=== PATIENT | female | born 1940 | race Caucasian/White ===

== ENCOUNTER 2019-06-02 13:08 | Emergency (ER) | payer OTHER, MEDICARE ==
--- NOTE | 2019-06-02 13:28 | PDOC ---
History of Present Illness - General Chief Complaint: Rash Stated Complaint: RED RASH TO RIGHT LEG Time Seen by Provider: 06/02/19 13:14 History Source: Patient Exam Limitations: No Limitations - History of Present Illness Initial Comments: 06/02/19 13:23 79 y/o female with rash on body for 9 months. Unable to get in to [facility]. Itchy and red. Most lesions on legs and abdomen. No fever or chills. No new products. Scratches at them. Severity: Yes: mild Past History - Past Medical History Allergies/Adverse Reactions: Allergies Allergy/AdvReac Type Severity Reaction Status Date / Time No Known Allergies Allergy Unverified 06/02/19 13:11 Home Medications: Ambulatory Orders Allopurinol 1 tab PO DAILY 06/02/19 Biotin 600 mcg PO DAILY 06/02/19 Cephalexin [Keflex] 500 mg PO TID #21 capsule 06/02/19 Cholecalciferol (Vitamin D3) [Vitamin D3 -] 1,000 unit PO DAILY 06/02/19 Cyanocobalamin/Folic AC/Vit B6 [Folbic Tablet] 1 each PO DAILY 06/02/19 Hydrochlorothiazide [Hctz -] 12.5 mg PO DAILY 06/02/19 Hydrocortisone 2.5% Topical Cr [Anusol-Hc -] 1 applic RC TID #1 tube 06/02/19 Metoprolol Succinate 50 mg PO DAILY 06/02/19 Quinapril HCl 20 mg PO HS 06/02/19 Review of Systems - Review of Systems Able to Perform ROS?: Yes Is the patient limited Welsh proficient: No Constitutional: No: Chills, Fever Respiratory: No: Cough, Shortness of Breath Cardiac (ROS): No: Chest Pain ABD/GI: No: Nausea, Vomiting Musculoskeletal: No: Muscle Pain Integumentary: Yes: Pruritus, Rash All Other Systems: Reviewed and Negative *Physical Exam - Physical Exam General Appearance: Yes: Nourished, Appropriately Dressed. No: Severe Distress HEENT: positive: Normal ENT Inspection, Normal Voice Neck: positive: Trachea midline, Normal Thyroid, Supple. negative: Tender, Rigid Respiratory/Chest: positive: Lungs Clear, Normal Breath Sounds. negative: Chest Tender, Respiratory Distress Cardiovascular: positive: Regular Rhythm, Regular Rate, S1, S2. negative: Edema , JVD, Murmur Vascular Pulses: Femoral (R): 4+, Femoral (L): 4+, Carotid (R): 4+, Carotid (L) : 4+, Dorsalis-Pedis (R): 4+, Doralis-Pedis (L): 4+ Lymphatic: negative: Adenopathy, Tenderness, Other Musculoskeletal: positive: Normal Inspection. negative: CVA Tenderness Extremity: positive: Normal Capillary Refill, Normal Inspection, Normal Range of Motion, Tender Integumentary: positive: Normal Color, Dry, Warm, Erythema, Rash (scaly rash to right lower leg with smaller lesions to both legs surrounded by erythema, no warmth and small scabbed lesions to abdomen). negative: Swelling, Ecchymosis, Bruising Neurologic: positive: global technical writer II-XII NML intact, Fully Oriented, Alert, Normal Mood/ Affect, Normal Response ED Progress Note - Progress Note Progress Note: 06/02/19 13:27 79 y/o female with lesions on legs appear to be bed bug bites now with super infection Will cover with Keflex and Hydrocortisone cream Follow up with [facility] Supervisor If worsen return to ER Discharge - Discharge Information Problems reviewed: Yes Clinical Impression/Diagnosis: Bed bug bite Qualifiers: Encounter type: initial encounter Qualified Code(s): W57.XXXA - Bitten or stung by nonvenomous insect and other nonvenomous arthropods, initial encounter Cellulitis Qualifiers: Site of cellulitis: extremity Site of cellulitis of extremity: lower extremity Laterality: unspecified laterality Qualified Code(s): L03.119 - Cellulitis of unspecified part of limb Condition: Stable Disposition: HOME - Admission No - Follow up/Referral Referrals: Hieu Silva MD [Primary Care Provider] - - Patient Discharge Instructions Patient Printed Discharge Instructions: DI for Bed Bug Bites, DI for Cellulitis -- Adult Additional Instructions: Keflex 500mg 3x/day for 5 days Hydrocortisone 2.5 % cream to arae 3x/day for 1 week Follow up with [facility] Supervisor If worsen return to ER - Post Discharge Activity
[2019-06-02 13:29] VITALS: BP 148/91; PULSE 96; TEMP 98.6; BMI 32.9
== END 2019-06-02 14:00 | disposition home or self-care (01) ==
LOC: FER 13:08
DX: L03.119 Cellulitis of unspecified part of limb (principal); W57.XXXA Bitten or stung by nonvenomous insect and other nonvenomous arthropods, initial encounter; Y93.89 Activity, other specified; Y92.89 Other specified places as the place of occurrence of the external cause
CPT/HCPCS: 99281-25

== ENCOUNTER 2020-03-26 08:58 | Day surgery (SDC) | payer OTHER, MEDICARE ==
[2020-03-21 11:29] VITALS: BMI 32.3
[2020-03-26] MEDS: PHENYLEPHRINE 2.5% OPHTH SOLN 15 ML BOTTLE ONE ×3 (10:00→10:10)
[2020-03-26] MEDS: CIPROFLOXACIN 0.3% EYE DROPS 5 ML BOTTLE ONE ×3 (10:00→10:10)
[2020-03-26] MEDS: TROPICAMIDE 1% OPHTH SOLN 15 ML BOTTLE ONE ×3 (10:00→10:10)
[2020-03-26] MEDS: CYCLOPENTOLATE 2% OPHTH SOLN 2 ML BOTTLE ONE ×3 (10:00→10:10)
[2020-03-26 10:05] VITALS: TEMP 98.5
[2020-03-26] MEDS ORDERED: MIDAZOLAM HCL 2 MG/2 ML SINGLE DOSE VIAL ONE (11:49)
[2020-03-26] MEDS ORDERED: BSS (NA/CA/MG/K) BALANCED SALT SOLUTION OPHTH SOLN 15 ML BOTTLE ONE (11:50)
[2020-03-26] MEDS ORDERED: TETRACAINE 0.5% OPHTH SOLN 2 ML BOTTLE ONE (11:50)
[2020-03-26] MEDS ORDERED: LIDOCAINE 1% P/F 10 MG/ML VIAL ONE (11:50)
[2020-03-26] MEDS ORDERED: CARBACHOL 0.01% INTRA-OCULAR 1.5 ML VIAL ONE (11:51)
[2020-03-26] MEDS ORDERED: NEO/POLYMYX B SULF/DEXAMETH OPHTHALMIC 5ML BOTTLE ONE (11:51)
[2020-03-26] MEDS ORDERED: DEXAMETHASONE SOD PHOSPHATE 4 MG/1 ML VIAL ONE (12:06)
[2020-03-26] MEDS ORDERED: ONDANSETRON 4 MG/2 ML VIAL ONE (12:06)
[2020-03-26 13:10] VITALS: BP 110/66; PULSE 77
== END 2020-03-26 13:15 | disposition home or self-care (01) ==
LOC: FASU 08:58
PROVIDERS: ATTEND Ophthalmology
PROC: 08RJ3JZ Replacement of Right Lens with Synthetic Substitute, Percutaneous Approach (ICD-10-PCS; principal; 2020-03-26 12:08)
DX: H26.8 Other specified cataract (principal)

== ENCOUNTER 2020-09-24 18:47 | Emergency (ER) | payer OTHER, MEDICARE ==
[2020-09-24 19:04] VITALS: BP 137/84; PULSE 84; TEMP 99.7; BMI 32.3
[2020-09-24] MEDS ORDERED: LIDOCAINE 2.5%/PRILOCAINE 2.5% (5 Gram/TUBE) TP ONE (19:29)
[2020-09-24] MEDS ORDERED: LIDOCAINE 2.5%/PRILOCAINE 2.5% 30 GRAM TUBE TP ONE (19:36)
== END 2020-09-24 19:50 | disposition home or self-care (01) ==
LOC: FER 18:47
DX: K64.8 Other hemorrhoids (principal)
CPT/HCPCS: 99283-25

== ENCOUNTER 2021-03-04 15:09 | Emergency (ER) | payer OTHER, MEDICARE ==
[2021-03-04 15:21] VITALS: TEMP 98.1; BMI 28.2
[2021-03-04] MEDS ORDERED: ACETAMINOPHEN 500 MG TABLET (FP) PO ONE (15:26)
[2021-03-04] MEDS ORDERED: ACETAMINOPHEN 500 MG TABLET (FP) ONE (15:30)
[2021-03-04 17:39] VITALS: BP 119/75; PULSE 70
== END 2021-03-04 17:40 | disposition home or self-care (01) ==
LOC: FER 15:09
DX: S81.002A Unspecified open wound, left knee, initial encounter (principal); S09.90XA Unspecified injury of head, initial encounter; W01.198A Fall on same level from slipping, tripping and stumbling with subsequent striking against other object, initial encounter
CPT/HCPCS: 70450-TC; 72125-TC; 73562-TC-LT-FY; 99285-25

== ENCOUNTER 2022-06-04 10:18 | Day surgery (SDC) | payer OTHER, MEDICARE ==
[2022-05-16 14:51] VITALS: BMI 29.8
[2022-06-04] MEDS ORDERED: CARBACHOL 0.01% INTRA-OCULAR 1.5 ML VIAL ONE (10:22)
[2022-06-04] MEDS ORDERED: BSS (NA/CA/MG/K) BALANCED SALT SOLUTION OPHTH SOLN 15 ML BOTTLE ONE (10:22)
[2022-06-04] MEDS ORDERED: NEO/POLYMYX B SULF/DEXAMETH OPHTHALMIC 5ML BOTTLE ONE (10:22)
[2022-06-04] MEDS: CIPROFLOXACIN 0.3% EYE DROPS 5 ML BOTTLE ONE ×3 (11:00→11:10)
[2022-06-04] MEDS: CYCLOPENTOLATE 2% OPHTH SOLN 2 ML BOTTLE ONE ×3 (11:00→11:10)
[2022-06-04] MEDS: PHENYLEPHRINE 2.5% OPTHALMIC DROP 2ML BOTTLE ONE ×3 (11:00→11:10)
[2022-06-04] MEDS: TROPICAMIDE 1% OPHTH SOLN 15 ML BOTTLE ONE ×3 (11:00→11:10)
[2022-06-04 11:05] VITALS: RESP 16
[2022-06-04] MEDS ORDERED: MIDAZOLAM HCL 2 MG/2 ML SINGLE DOSE VIAL ONE (11:18)
[2022-06-04 12:25] VITALS: TEMP 98.1
[2022-06-04 13:18] VITALS: BP 118/63; PULSE 84
== END 2022-06-04 13:30 | disposition home or self-care (01) ==
LOC: FASU 10:18
PROVIDERS: ATTEND Ophthalmology
PROC: 08RK3JZ Replacement of Left Lens with Synthetic Substitute, Percutaneous Approach (ICD-10-PCS; principal; 2022-06-04 11:59)
DX: H26.8 Other specified cataract (principal)
CPT/HCPCS: 66984; V2632

== ENCOUNTER 2022-09-23 00:13 | Inpatient (IN) | payer OTHER, MEDICARE ==
[2022-09-23] MEDS ORDERED: SODIUM CHLORIDE 0.9% 500 ML INFUS.BAG IV ONE (00:31)
[2022-09-23] MEDS ORDERED: morphine CARPU-JECT 2 MG/1 ML DISP.SYRIN IVPUSH ONE (00:31)
[2022-09-23] MEDS ORDERED: morphine SULFATE 4 MG/ML VIAL ONE ×2 (00:43→03:34)
[2022-09-23 02:20] LABS: POTASSIUM 3.7 mmol/L (3.5-5.1)
[2022-09-23 02:23] LABS: ALBUMIN 4.1 g/dl (3.4-5.0); BLOOD UREA NITROGEN 34.1 mg/dL (7-18); CALCIUM 9.1 mg/dL (8.5-10.1)
[2022-09-23 02:26] LABS: CREATININE 1.2 mg/dL (0.55-1.3)
[2022-09-23 02:28] LABS: BILIRUBIN,TOTAL 0.4 mg/dL (0.2-1); TOT PROT 7.1 g/dl (6.4-8.2)
[2022-09-23 02:35] LABS: HEMATOCRIT 35.1 % (32.4-45.2); HEMOGLOBIN 12.3 GM/dL (10.7-15.3); MCH 31.6 pg (25.7-33.7); MCHC 35.1 g/dl (32.0-36.0); MEAN CELL VOLUME 90.2 fl (80-96); MEAN PLT VOLUME 7.5 fl (7.5-11.1); PLATELET COUNT 189 10^3/uL (134-434); RBC 3.89 M/mm3 (3.60-5.2); RDW 14.3 % (11.6-15.6); WHITE BLOOD COUNT 7.7 K/mm3 (4.0-10.0)
[2022-09-23] MEDS ORDERED: morphine CARPU-JECT 4 MG/1 ML DISP.SYRIN IVPUSH ONE (03:29)
[2022-09-23] MEDS ORDERED: ACETAMINOPHEN 500 MG TABLET (FP) PO ONE (03:35)
[2022-09-23] MEDS ORDERED: ACETAMINOPHEN 1000 MG/100 ML BAG IVPB ONE (03:38)
[2022-09-23] MEDS ORDERED: ACETAMINOPHEN INJECTION 100 ML IVPB ONE (03:38)
[2022-09-23] MEDS ORDERED: PIPERACILLIN/TAZOBACTAM 3.375 GM VIAL IVPB ONE (04:56)
[2022-09-23] MEDS ORDERED: PIPERACILLIN/TAZOB 3.375 GM 3.375 GM in DEXTROSE 5%-WATER - 50 ML IVPB ONE (04:56)
[2022-09-23 06:41] LABS: INR 1.03 (0.83-1.09); PROTHROMBIN TIME (PATIENT) 11.9 SEC (9.7-13.0)
[2022-09-23] MEDS ORDERED: ONDANSETRON 4 MG/2 ML VIAL IVPUSH PRN (07:16)
[2022-09-23] MEDS: SODIUM CHLORIDE 1,000 ML IV SCH ×2 (07:26→11:29)
[2022-09-23 10:05] LABS: EPITHELIAL CELLS RARE /hpf
[2022-09-23] MEDS: PIPERACILLIN/TAZOB 3.375 GM 3.375 GM in DEXTROSE 5%-WATER - 50 ML IVPB SCH ×2 (11:28→17:22)
[2022-09-23 12:43] VITALS: BMI 31.6
[2022-09-24] MEDS ORDERED: ACETAMINOPHEN 500 MG TABLET (FP) PO ONE (01:00)
[2022-09-24] MEDS: PIPERACILLIN/TAZOB 3.375 GM 3.375 GM in DEXTROSE 5%-WATER - 50 ML IVPB SCH ×3 (02:31→10:13)
[2022-09-24] MEDS ORDERED: INSULIN (LEVEMIR) 100 UNITS/ML UNITS SQ ONE (06:35)
[2022-09-24 07:40] LABS: HEMATOCRIT 31.2 % (32.4-45.2); HEMOGLOBIN 11.4 GM/dL (10.7-15.3); LYMPH % 15.2 % (8-40); MCH 32.7 pg (25.7-33.7); MCHC 36.4 g/dl (32.0-36.0); MEAN CELL VOLUME 89.8 fl (80-96); MEAN PLT VOLUME 7.6 fl (7.5-11.1); MONO % 7.8 % (3.8-10.2); PLATELET COUNT 148 10^3/uL (134-434); RBC 3.47 M/mm3 (3.60-5.2); RDW 14.8 % (11.6-15.6); WHITE BLOOD COUNT 5.3 K/mm3 (4.0-10.0)
[2022-09-24 08:01] LABS: POTASSIUM 3.8 mmol/L (3.5-5.1)
[2022-09-24 08:04] LABS: BLOOD UREA NITROGEN 21.5 mg/dL (7-18); CALCIUM 8.4 mg/dL (8.5-10.1); MAGNESIUM 1.9 mg/dL (1.8-2.4)
[2022-09-24 08:08] LABS: CREATININE 1.3 mg/dL (0.55-1.3); PHOSPHOROUS 2.8 mg/dL (2.5-4.9)
[2022-09-24] MEDS ORDERED: ALLOPURINOL 300 MG TABLET (FP) PO SCH (10:15)
[2022-09-24] MEDS ORDERED: HYDROCHLOROTHIAZIDE 12.5 MG CAPSULE (FP) PO SCH (10:15)
[2022-09-24] MEDS ORDERED: POLYETHYLENE GLYCOL (HEALTHYLAX) 3350 17 GM PACKET PO SCH (11:00)
[2022-09-24 15:58] VITALS: BP 115/65; PULSE 74; RESP 18; TEMP 98.4
[2022-09-24] MEDS ORDERED: ROSUVASTATIN CA 5 MG TABLET PO SCH (22:00)
== END 2022-09-24 20:22 | disposition home or self-care (01) | DRG 394 ==
LOC: FER 00:13 → J8W 10:26
PROVIDERS: ADMIT Internal Medicine; ATTEND Nurse Practitioner Acute Care
DX: K45.0 Other specified abdominal hernia with obstruction, without gangrene (principal); K56.699 Other intestinal obstruction unspecified as to partial versus complete obstruction; I10 Essential (primary) hypertension; E78.5 Hyperlipidemia, unspecified; K57.30 Diverticulosis of large intestine without perforation or abscess without bleeding
CPT/HCPCS: 0241U-QW; 36415; 71045-TC-FY; 74177-TC; 80048; 80053; 81003; 81015; 82550; 82553; 83605; 83690; 83735; 84100; 84484; 85025; 85027; 85610; 86850; 86900; 86901; 87086; 93005; 99285-25; Q9967

== ENCOUNTER 2024-04-09 12:38 | Emergency (ER) | payer OTHER, MEDICARE ==
[2024-04-09 12:42] VITALS: BP 152/85; PULSE 82; RESP 18; TEMP 98.4; BMI 31.4
[2024-04-09 21:02] LABS: HIV INTERPRETATION NEGATIVE (NEGATIVE)
== END 2024-04-09 14:05 | disposition home or self-care (01) ==
LOC: FER 12:38
DX: M79.605 Pain in left leg (principal); I83.93 Asymptomatic varicose veins of bilateral lower extremities
CPT/HCPCS: 36415; 86803; 87389; 93971-TC; 99284-25